=== PATIENT | male | born 1945 | race Caucasian/White ===

== ENCOUNTER → 2023-04-14 15:36 | Outpatient (CLI) | payer MEDICARE, OTHER, SELFPAY ==
--- NOTE | 2023-04-14 | DI.RAD.S_ITS ---
PROCEDURE: XR HIP W PEL IF DONE RT 2V INDICATIONS: hip pain TECHNIQUE: AP pelvis and lateral view of the right hip acquired. COMPARISON: None. FINDINGS: Bones: Patient is status post bilateral hip arthroplasty, with hardware components in expected positions. The hip joint appears congruent. The visualized bony structures appear intact. Chronic appearing osseous density adjacent to the left hip joint. 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 Soft tissues: Overlying postoperative changes are noted. No suspicious soft tissue densities. IMPRESSION: 1. Bilateral hip arthroplasties with prosthetic components in expected positions, the right of which was the most recently placed. Dictated by: Wilberto Finn [facility] Interpreted: Tito Armendariz MD on 04/14/2023 at 16:30 Transcribed by: MARITZA on 04/14/2023 at 16:32 Approved by: Tito Armendariz M.D. on 04/14/2023 at 16:58
== END ==
DX: Z96.641 Presence of right artificial hip joint (principal); Z09 Encounter for follow-up examination after completed treatment for conditions other than malignant neoplasm
CPT/HCPCS: 73502

== ENCOUNTER → 2023-06-10 11:08 | Outpatient (CLI) | payer MEDICARE, OTHER, SELFPAY ==
--- NOTE | 2023-06-10 | DI.US.S_ITS ---
PROCEDURE: US CAROTID DOPPLER BI INDICATIONS: CAROTID STENOSIS TECHNIQUE: Color and pulse Doppler interrogation was performed of both carotid systems, with image documentation and velocity measurements. COMPARISON: None. FINDINGS: Stenosis calculations are based on SRU (Society [employer] in Ultras[employer]) criteria. Right side: Brachial blood pressure: 125/79 mm Hg. Common carotid artery peak systolic velocity: 107 cm/sec. Internal carotid artery peak systolic velocity: 87 cm/sec. Internal carotid artery end diastolic velocity: 30 cm/sec. External carotid artery peak systolic velocity: 92 cm/sec. ICA/CCA peak systolic ratio: 0.8 . Wiley scale imaging description: Echogenic plaque in the proximal internal carotid artery Percent internal carotid artery stenosis: Less than 50% . Vertebral artery: Flow direction is antegrade. Left side: Brachial blood pressure: 124/79 mm Hg. Common carotid artery peak systolic velocity: 91 cm/sec. Internal carotid artery peak systolic velocity: 101 cm/sec. Internal carotid artery end diastolic velocity: 32 cm/sec. External carotid artery peak systolic velocity: 107 cm/sec. ICA/CCA peak systolic ratio: 1.1 . Wiley scale imaging description: Soft plaque in the proximal internal carotid artery Percent internal carotid artery stenosis: Less than 50% stenosis . Vertebral artery: Flow direction is antegrade. IMPRESSION: Less than 50% stenosis of the internal carotid arteries by peak systolic velocity criteria. Soft plaque within the left proximal internal carotid artery, which is at high risk for embolization. Dictated by: Jerson Nixon M.D. on 06/10/2023 at 12:38 Approved by: Jerson Nixon M.D. on 06/10/2023 at 12:41
== END ==
LOC: US 11:09
PROVIDERS: PCP Student in an Organized Health Care Education/Training Program; Referring Provider Student in an Organized Health Care Education/Training Program; Visit Provider Student in an Organized Health Care Education/Training Program
DX: Z13.6 Encounter for screening for cardiovascular disorders (principal); I65.23 Occlusion and stenosis of bilateral carotid arteries
CPT/HCPCS: 93880

== ENCOUNTER 2024-10-16 14:50 | Emergency (ER) | payer MEDICARE, OTHER, SELFPAY ==
[2024-10-16] VITALS (13 sets, daily range): BP systolic 134–181; BP diastolic 65–79; PULSE 63–78; RESP 10–20; TEMP 37; O2SAT 85–100; BMI 29.7
--- NOTE | 2024-10-16 15:12 | DI.CT.S_ITS ---
PROCEDURE: CT HEAD/BRAIN WO CON INDICATIONS: right eye change vision TECHNIQUE: Noncontrast 4.5 mm thick angled axial sections acquired from the foramen magnum to the vertex, with coronal and sagittal reformats. For radiation dose reduction, the following was used: automated exposure control, adjustment of mA and/or kV according to patient size. COMPARISON: None. FINDINGS: Image quality: Diagnostic. CSF spaces: Basal cisterns are patent. No extra-axial fluid collections. The ventricles are symmetric in size and shape. Brain: No acute intracranial hemorrhage or mass effect. Mild left globus pallidus calcifications. There is cerebral volume loss, with resultant ventricular and sulcal prominence. There are periventricular and deep white matter chronic small vessel ischemic changes. There is intracranial internal carotid artery atherosclerosis. Skull and face: Calvarium and visualized facial bones appear intact, without suspicious lesions. Sinuses: Visualized sinuses and mastoids are clear. IMPRESSION: No acute intracranial pathology. Approved by: Tien Rojas M.D. on 10/16/2024 at 16:00
--- NOTE | 2024-10-16 15:15 | ED_ITS ---
HPI - General Adult <Yung Lynn MD - Last Filed: 10/17/24 18:57> General Chief complaint: Eye Problems Stated complaint: Vision Disturbance Time Seen by Provider: 10/16/24 15:12 Mode of arrival: Ambulatory History of Present Illness HPI narrative: 79-year-old left-handed male with no history of previous stroke or TIA, no ocular visual loss problems, wears glasses, complains of right monocular lateral visual field blurring in grayness onset yesterday, then this morning seeming to be more greenish to the entire right monocular visual field. No injury. No pain. No floaters like sensation. No symptoms on the left eye. No focal weakness to face arm or leg. No focal numbness to face arm or leg. He takes baby aspirin nightly, took it last night, no missed doses recent days/weeks. He does not take other blood thinner medications besides baby aspirin. Related Data Allergies Allergy/AdvReac Type Severity Reaction Status Date / Time No Known Drug Allergies Allergy Verified 10/16/24 15:11 Patient History <Yung Lynn MD - Last Filed: 10/17/24 18:57> Social History Smoking Status: Never smoker Smoking Status: Never smoker Exam <Yung Lynn MD - Last Filed: 10/17/24 18:57> Narrative Exam Narrative: GENERAL: Well-developed patient, in mild distress. HEAD: Atraumatic. Normocephalic. EYES: Pupils equal round and reactive. Extraocular motions intact. No scleral icterus. No injection or drainage. ENT: Nose without bleeding, purulent drainage. Throat without erythema, tonsillar hypertrophy or exudate. Airway patent. NECK: Trachea midline. Non tender CARDIOVASCULAR: Regular rate and rhythm without murmurs, gallops, or rubs. RESPIRATORY: Clear to auscultation. Breath sounds equal bilaterally. No wheezes, rales, or rhonchi. GASTROINTESTINAL: Abdomen soft, non-tender, nondistended. EXTREMITIES: No edema or joint tenderness. BACK: Nontender without deformity or crepitance. No flank tenderness. NEURO: AOx3. Cranial nerves remarkable for subjective decreased vision right visual eye field, can not seem to distinguish central versus peripheral difference, upper versus lower difference, temporal versus nasal difference. He is able to finger count right eye with left occluded, but has a sensation there is decreased visual acuity in the general right eye field since yesterday. No homonymous hemianopsia like symptoms. No left sided visual field deficits. Motor 5/5 bilateral upper extremities and bilateral lower extremities. Sensation intact to light touch face arms legs. Fcpnew-pn-evpk testing normal. SKIN: No rash or erythema of visible areas Initial Vital Signs Initial Vital Signs: Vital Signs Temperature 98.6 F 10/16/24 14:58 Pulse Rate 75 10/16/24 14:58 Respiratory Rate 20 10/16/24 14:58 Blood Pressure 163/75 H 10/16/24 14:58 Pulse Oximetry 100 10/16/24 14:58 Oxygen Delivery Method Room Air 10/16/24 14:58 <Nicolás Daley DO - Last Filed: 10/16/24 20:19> Initial Vital Signs Initial Vital Signs: Vital Signs Temperature 98.6 F 10/16/24 14:58 Pulse Rate 75 10/16/24 14:58 Respiratory Rate 20 10/16/24 14:58 Blood Pressure 163/75 H 10/16/24 14:58 Pulse Oximetry 100 10/16/24 14:58 Oxygen Delivery Method Room Air 10/16/24 14:58 Course <Yung Lynn MD - Last Filed: 10/17/24 18:57> Orders Ordered: Discontinued Medications Fluorescein Sodium (Fluorescein 1 Mg Strip) 1 mg EYE-RIGHT NOW PRN PRN Reason: visual disturbance Proparacaine HCl (Proparacaine 0.5% Ophth Sulema) 1 drops EYE-RIGHT PRN PRN PRN Reason: Dry Eye(s) Vital Signs Vital signs: Vital Signs - 8 hr 10/16/24 14:58 10/16/24 15:39 10/16/24 16:41 Temperature 98.6 F Pulse Rate 75 78 63 Respiratory Rate 20 18 Blood Pressure 163/75 H 146/70 H Pulse Oximetry 100 98 85 L Oxygen Delivery Method Room Air Room Air 10/16/24 16:42 10/16/24 16:42 10/16/24 16:45 Temperature Pulse Rate 72 69 Respiratory Rate 10 L Blood Pressure 181/77 H Pulse Oximetry 99 100 Oxygen Delivery Method 10/16/24 16:45 10/16/24 17:00 10/16/24 17:00 Temperature Pulse Rate 69 Respiratory Rate 11 L Blood Pressure 162/70 H 146/69 H Pulse Oximetry 99 Oxygen Delivery Method 10/16/24 17:30 10/16/24 17:30 10/16/24 18:00 Temperature Pulse Rate 67 69 Respiratory Rate 14 14 Blood Pressure 150/69 H Pulse Oximetry 97 95 Oxygen Delivery Method 10/16/24 18:00 10/16/24 19:20 10/16/24 19:22 Temperature Pulse Rate 67 70 Respiratory Rate 16 17 Blood Pressure 134/65 Pulse Oximetry 94 98 Oxygen Delivery Method 10/16/24 19:22 Temperature Pulse Rate Respiratory Rate Blood Pressure 162/79 H Pulse Oximetry Oxygen Delivery Method <Nicolás Daley, DO - Last Filed: 10/16/24 20:19> Orders Ordered: Discontinued Medications Fluorescein Sodium (Fluorescein 1 Mg Strip) 1 mg EYE-RIGHT NOW PRN PRN Reason: visual disturbance Proparacaine HCl (Proparacaine 0.5% Ophth Sulema) 1 drops EYE-RIGHT PRN PRN PRN Reason: Dry Eye(s) Vital Signs Vital signs: Vital Signs - 8 hr 10/16/24 14:58 10/16/24 15:39 10/16/24 16:41 Temperature 98.6 F Pulse Rate 75 78 63 Respiratory Rate 20 18 Blood Pressure 163/75 H 146/70 H Pulse Oximetry 100 98 85 L Oxygen Delivery Method Room Air Room Air 10/16/24 16:42 10/16/24 16:42 10/16/24 16:45 Temperature Pulse Rate 72 69 Respiratory Rate 10 L Blood Pressure 181/77 H Pulse Oximetry 99 100 Oxygen Delivery Method 10/16/24 16:45 10/16/24 17:00 10/16/24 17:00 Temperature Pulse Rate 69 Respiratory Rate 11 L Blood Pressure 162/70 H 146/69 H Pulse Oximetry 99 Oxygen Delivery Method 10/16/24 17:30 10/16/24 17:30 10/16/24 18:00 Temperature Pulse Rate 67 69 Respiratory Rate 14 14 Blood Pressure 150/69 H Pulse Oximetry 97 95 Oxygen Delivery Method 10/16/24 18:00 10/16/24 19:20 10/16/24 19:22 Temperature Pulse Rate 67 70 Respiratory Rate 16 17 Blood Pressure 134/65 Pulse Oximetry 94 98 Oxygen Delivery Method 10/16/24 19:22 Temperature Pulse Rate Respiratory Rate Blood Pressure 162/79 H Pulse Oximetry Oxygen Delivery Method Medical Decision Making <Yung Lynn MD - Last Filed: 10/17/24 18:57> Lab Data Lab results reviewed: Yes I reviewed the patient's lab results. Lab results narrative: White blood cell count 8600, hemoglobin 13.9, platelets adequate. Glucose 109. BUN 24 with creatinine 1.32, serum CO2 normal. Electrolytes unremarkable. Liver functions normal. 10/16/24 15:33 10/16/24 15:33 Labs: Lab Results 10/16/24 Range/Units 15:33 WBC 8.6 (4.5-11.0) X10^3/uL RBC 4.33 L (4.5-5.9) X10^6/uL Hgb 13.9 (13.5-17.5) g/dL Hct 40.3 L (41-53) % MCV 93.1 (80-100) fL MCH 32.1 (26-34) PG MCHC 34.5 (30-36) % RDW 14.3 (11.6-14.8) % Plt Count 217 (150-400) X10^3/uL Neut % (Auto) 45.3 L (50-75) % Lymph % (Auto) 40.2 H (25-40) % [place] % (Auto) 10.7 (3-14) % Eos % (Auto) 2.9 (2-4) % Baso % (Auto) 0.9 (0-2) % Neut # (Auto) 3900 (1210-9023) /uL Lymph # (Auto) 3400 (3142-4024) /uL [place] # (Auto) 900 (0-900) /uL Eos # (Auto) 300 (0-450) /uL Baso # (Auto) 100 (0-100) /uL ESR 25 H (0-15) MM/HR PT 11.7 (9.4-12.5) SECONDS INR 1.0 (0.9-1.3) Sodium 140 (137-145) mmol/L Potassium 4.1 (3.4-5.1) mmol/L Chloride 105 (98-107) mmol/L Carbon Dioxide 25 (22-32) mmol/L BUN 24 H (9-20) mg/dL Creatinine 1.32 H (0.66-1.25) mg/dL Estimated GFR 55 L (>60) mL/min BUN/Creatinine Ratio 18.2 (6-22) Glucose 109 H (70-99) mg/dL Calcium 9.4 (8.4-10.2) mg/dL Total Bilirubin 0.5 (0.2-1.3) mg/dL AST 34 (17-59) IU/L ALT 28 (<50) IU/L Alkaline Phosphatase 64 (38-126) U/L C-Reactive Protein < 0.5 (<1.0) mg/dL Total Protein 7.6 (6.3-8.2) g/dL Albumin 4.4 (3.5-5.0) g/dL Globulin 3.2 (1.7-4.1) g/dL Albumin/Globulin Ratio 1.4 (1.0-2.8) Point of Care Testing pH,Tear Film,POC Measurement pH 7 Glucose POC 102 Point of care testing: Point of Care Testing pH,Tear Film,POC Measurement pH 7 Glucose POC [address] scan - head: Radiologist's Impression: [place] [address] CT Scan Report Signed Patient: Maurilio Lee MR#: [id number] : 1945 Acct:[id number] Age/Sex: 79 / M Date of Service: 10/16/24 Loc: Accession Number: [id number] Procedure: CT angio head and neck Ordering Provider: Yung Lynn MD PROCEDURE: CT ANGIO HEAD AND NECK INDICATIONS: right eye acute change vision TECHNIQUE: After the administration of intravenous contrast, 1 mm thick sections acquired from the aortic arch through the [place]. 3-dimensional oxonqah-unytrspjp-xhvndxypua (MIP) and/or volume rendering reformats were acquired of the central intracranial vasculature and neck separately. For radiation dose reduction, the following was used: automated exposure control, adjustment of mA and/or kV according to patient size. COMPARISON: None. FINDINGS: Image quality: Diagnostic. Cerebral CT Angiogram: Internal carotid arteries: No acute findings. Intracranial ICA are patent with no significant stenosis. No occlusion. No aneurysm. Anterior cerebral arteries: Unremarkable. No significant stenosis. No occlusion. No aneurysm. Middle cerebral arteries: Unremarkable. No significant stenosis. No occlusion. No aneurysm. Posterior cerebral arteries: Unremarkable. No significant stenosis. No occlusion. No aneurysm. Basilar artery: Unremarkable. No significant stenosis. No occlusion. No aneurysm. Vertebral arteries: Unremarkable as visualized. Dural venous sinuses: Unremarkable given phase of enhancement. Other: Arterial phase appearance of the brain parenchyma is unremarkable. Neck CT Angiogram: Internal carotid arteries: Atherosclerotic plaque at the right carotid bifurcation, which does not result in hemodynamically significant stenosis. Left carotid bifurcation is patent. No dissection or occlusion. Common carotid arteries: Unremarkable. No significant stenosis. No dissection or occlusion. External carotid arteries: Unremarkable. No occlusion. Vertebral arteries: Unremarkable. No significant stenosis. No dissection or occlusion. Aortic Arch and Mediastinum: Partially visualized aortic arch unremarkable without evidence of aneurysm. The left common carotid artery arises from the brachiocephalic trunk, a normal anatomic variant. Other: Arterial phase soft tissues of the neck and chest are unremarkable. IMPRESSION: No significant intracranial arterial abnormality is seen. No significant abnormality is seen within the arteries of the neck. Any quantitative measurements of stenosis were performed using NASCET criteria. Approved by: Tien Rojas M.D. on 10/16/2024 at 16:03 CTA - brain/neck: Radiologist's Impression: [place] [address] CT Scan Report Signed Patient: Maurilio Lee MR#: [id number] : 1945 Acct:[id number] Age/Sex: 79 / M Date of Service: 10/16/24 Loc: Accession Number: [id number] Procedure: CT angio head and neck Ordering Provider: Yung Lynn MD PROCEDURE: CT ANGIO HEAD AND NECK INDICATIONS: right eye acute change vision TECHNIQUE: After the administration of intravenous contrast, 1 mm thick sections acquired from the aortic arch through the [place]. 3-dimensional izxxyrt-gqqulqjak-xllmjvgjvs (MIP) and/or volume rendering reformats were acquired of the central intracranial vasculature and neck separately. For radiation dose reduction, the following was used: automated exposure control, adjustment of mA and/or kV according to patient size. COMPARISON: None. FINDINGS: Image quality: Diagnostic. Cerebral CT Angiogram: Internal carotid arteries: No acute findings. Intracranial ICA are patent with no significant stenosis. No occlusion. No aneurysm. Anterior cerebral arteries: Unremarkable. No significant stenosis. No occlusion. No aneurysm. Middle cerebral arteries: Unremarkable. No significant stenosis. No occlusion. No aneurysm. Posterior cerebral arteries: Unremarkable. No significant stenosis. No occlusion. No aneurysm. Basilar artery: Unremarkable. No significant stenosis. No occlusion. No aneurysm. Vertebral arteries: Unremarkable as visualized. Dural venous sinuses: Unremarkable given phase of enhancement. Other: Arterial phase appearance of the brain parenchyma is unremarkable. Neck CT Angiogram: Internal carotid arteries: Atherosclerotic plaque at the right carotid bifurcation, which does not result in hemodynamically significant stenosis. Left carotid bifurcation is patent. No dissection or occlusion. Common carotid arteries: Unremarkable. No significant stenosis. No dissection or occlusion. External carotid arteries: Unremarkable. No occlusion. Vertebral arteries: Unremarkable. No significant stenosis. No dissection or occlusion. Aortic Arch and Mediastinum: Partially visualized aortic arch unremarkable without evidence of aneurysm. The left common carotid artery arises from the brachiocephalic trunk, a normal anatomic variant. Other: Arterial phase soft tissues of the neck and chest are unremarkable. IMPRESSION: No significant intracranial arterial abnormality is seen. No significant abnormality is seen within the arteries of the neck. Any quantitative measurements of stenosis were performed using NASCET criteria. Approved by: Tien Rojas M.D. on 10/16/2024 at 16:03 ECG Data Attestation: I personally reviewed and interpreted this ECG as follows: Interpretation: 1521, normal sinus rhythm with rate of 78, no obvious ST segment elevation or depression changes. IA 152, QRS 90, QTC 433. [facility] Narrative Medical decision making narrative: 79-year-old male had partial right visual loss yesterday seemed more complete on the right side earlier today. On confrontational exam seems to be monocular visual loss, painless and right-sided. He however seems to be able to finger count on the right side, sort of a hazy pathak blurred sensation, without floaters. Onset symptoms since yesterday and worsened many hours earlier today. If stroke or CRAO, then likely no lytics indicated given onset yesterday. Takes no oral anticoagulants, takes baby aspirin daily but no other antiplatelets. Consider consult Neurology once imaging studies available. Likely will need ophthalmology follow up on Thursday when local clinic providers are available. Patient would like to initiate available workup on this holiday weekend. CT head noncontrast, GFR favorable, CTA head and neck vessels, both ordered. We might be able to obtain MRI brain if tech still here. Unclear if cardiac echo could be done at this hour. Keep on court monitor for now. No obvious contraindications to MRI. MRI brain can be done before 1730, will place order. No cardiac echo available for the rest of the day today. CT head noncontrast, no acute changes. See radiology report. CT angiogram head and neck vessels. No significant narrowing, no thromboses. See radiology report. MRI brain noncontrast, no acute changes. See radiology report. 182, case discussed with Stroke Neuro, requests adding CRP/ESR, will review images and callback. <Nicolás Daley, DO - Last Filed: 10/16/24 20:19> Lab Data Labs: Lab Results 10/16/24 Range/Units 15:33 WBC 8.6 (4.5-11.0) X10^3/uL RBC 4.33 L (4.5-5.9) X10^6/uL Hgb 13.9 (13.5-17.5) g/dL Hct 40.3 L (41-53) % MCV 93.1 (80-100) fL MCH 32.1 (26-34) PG MCHC 34.5 (30-36) % RDW 14.3 (11.6-14.8) % Plt Count 217 (150-400) X10^3/uL Neut % (Auto) 45.3 L (50-75) % Lymph % (Auto) 40.2 H (25-40) % [place] % (Auto) 10.7 (3-14) % Eos % (Auto) 2.9 (2-4) % Baso % (Auto) 0.9 (0-2) % Neut # (Auto) 3900 (6418-9090) /uL Lymph # (Auto) 3400 (1271-6571) /uL [place] # (Auto) 900 (0-900) /uL Eos # (Auto) 300 (0-450) /uL Baso # (Auto) 100 (0-100) /uL ESR 25 H (0-15) MM/HR PT 11.7 (9.4-12.5) SECONDS INR 1.0 (0.9-1.3) Sodium 140 (137-145) mmol/L Potassium 4.1 (3.4-5.1) mmol/L Chloride 105 (98-107) mmol/L Carbon Dioxide 25 (22-32) mmol/L BUN 24 H (9-20) mg/dL Creatinine 1.32 H (0.66-1.25) mg/dL Estimated GFR 55 L (>60) mL/min BUN/Creatinine Ratio 18.2 (6-22) Glucose 109 H (70-99) mg/dL Calcium 9.4 (8.4-10.2) mg/dL Total Bilirubin 0.5 (0.2-1.3) mg/dL AST 34 (17-59) IU/L ALT 28 (<50) IU/L Alkaline Phosphatase 64 (38-126) U/L C-Reactive Protein < 0.5 (<1.0) mg/dL Total Protein 7.6 (6.3-8.2) g/dL Albumin 4.4 (3.5-5.0) g/dL Globulin 3.2 (1.7-4.1) g/dL Albumin/Globulin Ratio 1.4 (1.0-2.8) Point of Care Testing pH,Tear Film,POC Measurement pH 7 Glucose POC 102 Point of care testing: Point of Care Testing pH,Tear Film,POC Measurement pH 7 Glucose POC 102 Imaging Data CTA - brain/neck: Radiologist's Impression: [place] [address] CT Scan Report Signed Patient: Maurilio Lee MR#: [id number] : 1945 Acct:[id number] Age/Sex: 79 / M Date of Service: 10/16/24 Loc: ED Accession Number: [id number] Procedure: CT angio head and neck Ordering Provider: Yung Lynn MD PROCEDURE: CT ANGIO HEAD AND NECK INDICATIONS: right eye acute change vision TECHNIQUE: After the administration of intravenous contrast, 1 mm thick sections acquired from the aortic arch through the [place]. 3-dimensional awbobjh-rjgwyplif-sqalpdvwxq (MIP) and/or volume rendering reformats were acquired of the central intracranial vasculature and neck separately. For radiation dose reduction, the following was used: automated exposure control, adjustment of mA and/or kV according to patient size. COMPARISON: None. FINDINGS: Image quality: Diagnostic. Cerebral CT Angiogram: Internal carotid arteries: No acute findings. Intracranial ICA are patent with no significant stenosis. No occlusion. No aneurysm. Anterior cerebral arteries: Unremarkable. No significant stenosis. No occlusion. No aneurysm. Middle cerebral arteries: Unremarkable. No significant stenosis. No occlusion. No aneurysm. Posterior cerebral arteries: Unremarkable. No significant stenosis. No occlusion. No aneurysm. Basilar artery: Unremarkable. No significant stenosis. No occlusion. No aneurysm. Vertebral arteries: Unremarkable as visualized. Dural venous sinuses: Unremarkable given phase of enhancement. Other: Arterial phase appearance of the brain parenchyma is unremarkable. Neck CT Angiogram: Internal carotid arteries: Atherosclerotic plaque at the right carotid bifurcation, which does not result in hemodynamically significant stenosis. Left carotid bifurcation is patent. No dissection or occlusion. Common carotid arteries: Unremarkable. No significant stenosis. No dissection or occlusion. External carotid arteries: Unremarkable. No occlusion. Vertebral arteries: Unremarkable. No significant stenosis. No dissection or occlusion. Aortic Arch and Mediastinum: Partially visualized aortic arch unremarkable without evidence of aneurysm. The left common carotid artery arises from the brachiocephalic trunk, a normal anatomic variant. Other: Arterial phase soft tissues of the neck and chest are unremarkable. IMPRESSION: No significant intracranial arterial abnormality is seen. No significant abnormality is seen within the arteries of the neck. Any quantitative measurements of stenosis were performed using NASCET criteria. Approved by: Tien Rojas M.D. on 10/16/2024 at 16:03 [place] [address] Magnetic Resonance Report Signed Patient: Maurilio Lee MR#: [id number] : 1945 Acct:[id number] Age/Sex: 79 / M Date of Service: 10/16/24 Loc: ED Accession Number: [id number] Procedure: MR head/brain wo con Ordering Provider: Yung Lynn MD PROCEDURE: MR HEAD/BRAIN WO CON INDICATIONS: right eye loss vision TECHNIQUE: Non-contrast axial T1 spin echo, axial T2 fast spin echo, sagittal and axial FLAIR, coronal T2 fast spin echo, axial gradient echo, axial diffusion and ADC through the brain. COMPARISON: [facility], CT, CT HEAD/BRAIN WO CON, 10/16/2024, 16:10. FINDINGS: Image quality: Excellent. CSF spaces: Ventricles appear symmetric in size and shape. Basal cisterns are patent. No extra-axial fluid collections. Brain: No intracranial bleeds or mass effects. There is cerebral volume loss for age. There are periventricular and deep white matter chronic small vessel ischemic changes. Brainstem appears normal. Diffusion-weighted images show no acute infarct. No chronic ischemic insults. Normal intravascular flow voids are present. Skull and face: Calvarial bone marrow is normal in signal. Orbits are normal. Sinuses: Sinuses and mastoids are clear. IMPRESSION: No acute intracranial process Dictated by: Jn Garcia M.D. on 10/16/2024 at 17:53 MDM Narrative Medical decision making narrative: 79-year-old male had partial right visual loss yesterday seemed more complete on the right side earlier today. On confrontational exam seems to be monocular visual loss, painless and right-sided. He however seems to be able to finger count on the right side, sort of a hazy pathak blurred sensation, without floaters. Onset symptoms since yesterday and worsened many hours earlier today. If stroke or CRAO, then likely no lytics indicated given onset yesterday. Takes no oral anticoagulants, takes baby aspirin daily but no other antiplatelets. Consider consult Neurology once imaging studies available. Likely will need ophthalmology follow up on Thursday when local clinic providers are available. Patient would like to initiate available workup on this holiday weekend. CT head noncontrast, GFR favorable, CTA head and neck vessels, both ordered. We might be able to obtain MRI brain if tech still here. Unclear if cardiac echo could be done at this hour. Keep on court monitor for now. No obvious contraindications to MRI. MRI brain can be done before 1730, will place order. No cardiac echo available for the rest of the day today. CT head noncontrast, no acute changes. See radiology report. CT angiogram head and neck vessels. No significant narrowing, no thromboses. See radiology report. MRI brain noncontrast, no acute changes. See radiology report. 1819, case discussed with Stroke Neuro, requests adding CRP/ESR, will review images and callback. Patient signed out to me at shift change pending final disposition by Dr. Lynn. All lab work vital signs nurse triage note medication list previous ER visits in all imaging studies have been reviewed. Brain MRI and CT head both did not show any acute intracranial process. No significant abnormality is seen in the neck. Sed rate was 25, BUN 24 creatinine 1.32 glucose 109. Case was discussed with Dr. Pineda neurology on-call at [facility] who has concern no retinal ischemia versus ophthalmology issues such as retinal detachment and to recommend continuing aspirin and statin and to do TIA workup including echo court monitor and if patient refused to stay to follow up with Ophthalmology appointment next week. Patient did not want to be admitted and wanted to go home so I will put in referral for patient to see Ophthalmology in and [place] on Thursday. Differential diagnosis includes CVA TIA central retinal artery and or venous occlusion, temporal arteritis. Foreign body and corneal abrasion. Wood's lamp fluorescein strip proparacaine did not show any fluorescein up. Visual acuity 20/30 both eyes at right eye was 20/40 Discharge Plan Departure Patient Disposition: Home Clinical Impression: Visual field defect of right eye Instructions: Coping With Low Vision Activity Restrictions/Additional Instructions: Return with new or worsening symptoms. Please continue taking your aspirin and cholesterol medicines. Please follow up with Ophthalmology in [place] on Thursday morning for re-evaulation Referrals: Magan Washington MD [Physician] - As soon as possible (R eye blurred vision, negative Brain MRI, Ct scan head and cta head and neck) Gretchen Mcdonald PA-C [Primary Care Provider] - Stand Alone Forms: Patient Portal/API/Survey
--- NOTE | 2024-10-16 15:21 | EKG_ITS ---
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
--- NOTE | 2024-10-16 15:37 | DI.MRI.S_ITS ---
PROCEDURE: MR HEAD/BRAIN WO CON INDICATIONS: right eye loss vision TECHNIQUE: Non-contrast axial T1 spin echo, axial T2 fast spin echo, sagittal and axial FLAIR, coronal T2 fast spin echo, axial gradient echo, axial diffusion and ADC through the brain. COMPARISON: [facility], CT, CT HEAD/BRAIN WO CON, 10/16/2024, 16:10. FINDINGS: Image quality: Excellent. CSF spaces: Ventricles appear symmetric in size and shape. Basal cisterns are patent. No extra-axial fluid collections. Brain: No intracranial bleeds or mass effects. There is cerebral volume loss for age. There are periventricular and deep white matter chronic small vessel ischemic changes. Brainstem appears normal. Diffusion-weighted images show no acute infarct. No chronic ischemic insults. Normal intravascular flow voids are present. Skull and face: Calvarial bone marrow is normal in signal. Orbits are normal. Sinuses: Sinuses and mastoids are clear. IMPRESSION: No acute intracranial process Dictated by: Jn Garcia M.D. on 10/16/2024 at 17:53 Approved by: Jn Garcia M.D. on 10/16/2024 at 17:55
[2024-10-16 15:43] LABS: Add Manual Diff / Slide Review NO; Basophils Absolute Auto 100 /uL (0-100); Basophils Percent Auto 0.9 % (0-2); Eosinophils Absolute Auto 300 /uL (0-450); Eosinophils Percent Auto 2.9 % (2-4); Hematocrit 40.3 % (41-53); Hemoglobin 13.9 g/dL (13.5-17.5); Lymphocytes Absolute Auto 3400 /uL (1100-4500); Lymphocytes Percent Auto 40.2 % (25-40); Mean Corpuscular HGB Conc 34.5 % (30-36); Mean Corpuscular Hemoglobin 32.1 PG (26-34); Mean Corpuscular Volume 93.1 fL (80-100); Monocytes Absolute Auto 900 /uL (0-900); Monocytes Percent Auto 10.7 % (3-14); Neutrophils Absolute Auto 3900 /uL (1500-7000); Neutrophils Percent Auto 45.3 % (50-75); Platelet Count 217 X10^3/uL (150-400); Red Blood Cell Count 4.33 X10^6/uL (4.5-5.9); Red Cell Distribution Width 14.3 % (11.6-14.8); White Blood Cell Count 8.6 X10^3/uL (4.5-11.0)
[2024-10-16 15:49] LABS: Prothrombin Time 11.7 SECONDS (9.4-12.5)
[2024-10-16 15:56] LABS: Alanine Aminotransferase 28 IU/L (<50); Albumin 4.4 g/dL (3.5-5.0); Albumin Globulin Ratio 1.4 (1.0-2.8); Alkaline Phosphatase 64 U/L (38-126); Aspartate Aminotransferase 34 IU/L (17-59); BUN Creatinine Ratio 18.2 (6-22); Bilirubin Total 0.5 mg/dL (0.2-1.3); Blood Urea Nitrogen 24 mg/dL (9-20); Calcium 9.4 mg/dL (8.4-10.2); Carbon Dioxide 25 mmol/L (22-32); Chloride 105 mmol/L (98-107); Estimated Glomerular Filt Rate 55 mL/min (>60); Globulin 3.2 g/dL (1.7-4.1); Glucose 109 mg/dL (70-99); HEMOLYSIS < 15 (0-50); Potassium 4.1 mmol/L (3.4-5.1); Sodium 140 mmol/L (137-145); Total Protein 7.6 g/dL (6.3-8.2)
--- NOTE | 2024-10-16 17:54 | PC.NURSE ---
Pt resting on stretcher, RA, A&Ox4, NAD, breathing even/equal/unlabored at this time. Pt updated to plan of care, call light within reach, no needs at this time. Pt denies worsening of vision at this time, states same as when I came in
[2024-10-16 18:43] LABS: C-Reactive Protein Quant < 0.5 mg/dL (<1.0)
[2024-10-16 19:14] LABS: Erythrocyte Sedimentation Rate 25 MM/HR (0-15)
== END 2024-10-16 20:40 | disposition home or self-care (01) ==
PROVIDERS: Emergency Medicine; Emergency Provider Family Medicine; PCP Student in an Organized Health Care Education/Training Program
DX: H53.40 Unspecified visual field defects (principal); R07.9 Chest pain, unspecified
CPT/HCPCS: 36415; 70450; 70496; 70498; 70551; 80053; 82962; 85025; 85610; 85651; 86140; 93005; 99283; 99284; Q9967